=== PATIENT | male | born 1985 | race Caucasian/White ===

== ENCOUNTER 2022-10-26 20:35 | Emergency (ER) | payer SELFPAY | END 2022-10-26 23:19 | disposition left against medical advice (07) | DRG 951 | LOC: ED 20:35 → LWOBS 23:19 | DX: Z53.21 Procedure and treatment not carried out due to patient leaving prior to being seen by health care provider (principal) ==

== ENCOUNTER 2022-12-28 14:26 | Emergency (ER) | payer SELFPAY ==
[~2022-12-28] VITALS: Ht 175.3 cm; Wt 82.0 kg
[2022-12-28 14:33] VITALS: BP 134/86
[2022-12-28 14:40] VITALS: BP 135/86
[2022-12-28 15:00] VITALS: BP 129/76; BP 143/103
[2022-12-28 15:20] VITALS: BP 143/103
[2022-12-28 15:27] LABS: BASO% 0.7 % (0-3); EOS% 5.6 % (0-8); HEMATOCRIT 45.3 % (39.0-50.0); HEMOGLOBIN 14.8 g/dl (14.0-18.0); IMMATURE GRANULOCYTES 0.2 % (0.0-5.0); LYMPH% 18.6 % (15-41); MEAN CELL VOLUME 90.4 fL CALC (80.0-100.0); MEAN CORPUSCULAR HGB 29.5 pG CALC (26.0-32.0); MEAN CORPUSCULAR HGB CONC 32.7 g/dL CAL (32.0-36.0); MONO% 7.3 % (2-13); NEUT# 5.77 thou/uL (1.82-7.42); NEUT% 67.6 % (42-76); RED BLOOD COUNT 5.01 mill/uL (4.70-6.10); RED CELL DISTRI WIDTH 13.7 % (11.5-15.5)
[2022-12-28 15:43] LABS: ALBUMIN 4.6 g/dL (3.2-5.0); ALKALINE PHOSPHATASE 66 u/l (38-126); ANION GAP 10 (6-22 (CALC)); BILIRUBIN, TOTAL 0.4 mg/dL (0.2-1.3); BUN 19 mg/dL (9-20); BUN/CREATININE RATIO 20 (12-20 (CALC)); CARBON DIOXIDE 27 mmol/l (22-30); CHLORIDE 107 mmol/l (95-108); GFR FOR AFR.AMER. > 60 ML/MIN (>=60 (CALC)); GFR OTHER RACES > 60 ML/MIN (>=60 (CALC)); POTASSIUM 4.7 mmol/l (3.5-5.1); SGOT/AST 34 u/l (17-59); SODIUM 139 mmol/l (137-146)
[2022-12-28] MEDS ORDERED: BACTRIM DS1 TAB PO (17:26)
[2022-12-28 17:45] VITALS: BP 143/103
== END 2022-12-28 17:54 | disposition home or self-care (01) | DRG 603 ==
LOC: ED 14:26
PROVIDERS: Family Medicine
PROC: 0H9BXZZ Drainage of Right Upper Arm Skin, External Approach (ICD-10-PCS; principal; 2022-12-28)
DX: L02.413 Cutaneous abscess of right upper limb (principal); R07.9 Chest pain, unspecified; M25.572 Pain in left ankle and joints of left foot